=== PATIENT | female | born 1965 | race Caucasian/White ===

== ENCOUNTER → 2017-02-14 | Outpatient (CLI) | payer OTHER ==
[~2017-02-14] MED LIST: ALPR1TAB2 PO; ATEN50TA PO; BUPR150T8 PO; CETI10TA22 PO; CHOL10003 PO; DESV100T PO; DICY20TA3 PO; HYDR-2762 PO; LANS30CA PO; LEVO100T5 PO; LORA10TA68 PO; MAGN400C PO; METH-38 PO; MULT1TAB52 PO; NORE-2 PO; OXYC-323 PO; SENN-37 PO; TRAZ50TA15 PO
[2017-02-14 12:34] LABS: BASO % 0 % (0-3); EOS % 0 % (0-3); HEMATOCRIT 41.4 % (36.0-47.0); HEMOGLOBIN 13.7 g/dL (12.0-15.5); LYMPH # 1.4 x10^3/uL (1.0-4.8); LYMPH % 15 % (24-48); MEAN CORPUSCULAR HEMOGLOBIN 29 pg (25-35); MEAN CORPUSCULAR HGB CONC 33 g/dL (31-37); MEAN CORPUSCULAR VOLUME 89 fL (79-100); MONO % 5 % (0-9); NEUT % 80 % (31-73); PLATELET COUNT 295 x10^3/uL (140-400); RED BLOOD COUNT 4.66 x10^6/uL (3.50-5.40); WHITE BLOOD COUNT 9.3 x10^3/uL (4.0-11.0)
[2017-02-14 12:43] LABS: INR 0.9 (0.8-1.1)
[2017-02-14 12:50] LABS: ALBUMIN 3.1 g/dL (3.4-5.0); ALBUMIN/GLOBULIN RATIO 0.7 (1.0-1.7); CALCIUM 8.2 mg/dL (8.5-10.1); CREATININE 1.3 mg/dL (0.6-1.0); GFR 43.4; POTASSIUM 4.3 mmol/L (3.5-5.1); TOTAL BILIRUBIN 0.1 mg/dL (0.2-1.0); TOTAL PROTEIN 7.3 g/dL (6.4-8.2)
--- NOTE | 2017-02-14 12:51 | EKG ---
[facility] [address] [place] [address] Test Date: 2017-02-14 Test Time: 12:54:21 Pat Name: JESSICA ALANIZ Department: Room: Gender: F Physical Therapy Attendant: : 1965 Requested By: MANUEL DUKES Order Number: [id number] Reading MD: Gibson Hall Measurements Intervals [place] Rate: 81 P: 54 OK: 102 QRS: 54 QRSD: 78 T: 48 QT: 382 QTc: 449 Interpretive Statements SINUS RHYTHM Electronically Signed On 02-16-2017 13:06:42 CDT by Gisbon Hall
== END | disposition home or self-care (01) ==
LOC: SURGPAT 12:08
PROVIDERS: ATTEND Neurological Surgery
DX: M54.12 Radiculopathy, cervical region (principal)
CPT/HCPCS: 36415; 80053; 85027; 85610; 85730; 87641; 93005

== ENCOUNTER 2017-02-19 09:59 | Observation (INO) | payer OTHER ==
[~2017-02-19] VITALS: Ht 152.4 cm; Wt 81.6 kg
[2017-02-19] VITALS (9 sets, daily range): BP systolic 136–152; BP diastolic 75–97
[~2017-02-19 09:59] MED LIST changes: +BACITRACIN 50,000 UNIT in IV NORMAL SALINE 1000ML BAG 1,000 ML IRR ONE; +HYDROmorphone 2 MG/ML VIAL IV PRN; +IV RINGERS,LACTATED 1000ML 1,000 ML IV SCH; +LIDOCAINE 1% 1 ML SYRINGE. ID PRN; -METH-38 PO; +MORPHINE SULFATE 2 MG/ML DISP.SYRIN. IV PRN; +ONDANSETRON PF 4 MG/2 ML VIAL. IV PRN; -OXYC-323 PO; +PROCHLORPERAZINE 10 MG/2 ML VIAL. IV PRN; -SENN-37 PO; +VANCOMYCIN 1GM IVPB FOR OMNI 250 ML IV PRN; +fentaNYL PF VIAL 100 MCG/2 ML VIAL IV PRN
[2017-02-19] MEDS ORDERED: fentaNYL PF VIAL 100 MCG/2 ML VIAL ONE (10:36)
[2017-02-19] MEDS ORDERED: MIDAZOLAM HCL/PF 2 MG/2 ML VIAL. ONE (10:36)
[2017-02-19] MEDS ORDERED: ROCURONIUM 50 MG/5 ML VIAL. ONE (10:36)
[2017-02-19] MEDS ORDERED: DESFLURANE 61 TO 120 MINUTES IH ONE (10:36)
[2017-02-19] MEDS ORDERED: DEXAMETHASONE SOD PHOS 20 MG/5 ML VIAL. ONE (10:37)
[2017-02-19] MEDS ORDERED: PHENYLEPHRINE 10 MG/ML VIAL. ONE (10:37)
[2017-02-19] MEDS ORDERED: PROPOFOL 20 ML IV ONE (10:37)
[2017-02-19] MEDS ORDERED: ONDANSETRON PF 4 MG/2 ML VIAL. ONE (10:37)
[2017-02-19] MEDS ORDERED: 0.9 % SODIUM CHLORIDE 50 ML VIAL. IJ ONE (10:37)
[2017-02-19] MEDS ORDERED: PROPOFOL 50 ML IV ONE (10:37)
[2017-02-19] MEDS ORDERED: BUPIVACAINE-EPI 0.25%-1:200000 MPF 30 ML VIAL. ONE (10:37)
[2017-02-19] MEDS ORDERED: THROMBIN TOPICAL 20,000 UNIT SPRAY.SYRN KIT TP ONE (10:38)
[2017-02-19] MEDS ORDERED: REMIFENTANIL 2 MG VIAL. IV ONE (10:38)
[2017-02-19] MEDS ORDERED: GELATIN SPONGE SIZE 100. ONE (10:38)
[2017-02-19] MEDS ORDERED: NEOSTIGMINE METHYLSULFATE 5 MG/5 ML SYRINGE. ONE (12:00)
[2017-02-19] MEDS ORDERED: GLYCOPYRROLATE 1 MG/5 ML VIAL. ONE (12:00)
--- NOTE | 2017-02-19 15:41 | PDOC ---
BRIEF OPERATIVE NOTE Date: Feb 19, 2017 Pre-Op Diagnosis cervical radiculopathy, cervical stenosis, weakness Post-Op Diagnosis same Procedure Performed ACDF 6-7 Surgeon Letitia Airborne Operations Manager none Blood Loss 25mL Specimens Obtained disk and decompression Findings -adjacent level construct intact at C5-6 -prominent stenosis C6-7 from disk/osteophyte -neuromonitoring potentials improved upon completion of the procedure compared to baseline Complications none apparent MANUEL DUKES MD Feb 19, 2017 15:41
[2017-02-19] MEDS ORDERED: MAGNESIUM HYDROXIDE 2,400 MG/30 ML ORAL.SUSP. PO PRN (15:45)
[2017-02-19] MEDS ORDERED: ACETAMINOPHEN 325 MG TABLET. PO PRN (15:45)
[2017-02-19] MEDS ORDERED: CALCIUM CARBONATE 500 MG TAB.CHEW PO PRN (15:45)
[2017-02-19] MEDS ORDERED: ONDANSETRON PF 4 MG/2 ML VIAL. IV PRN (15:45)
[2017-02-19] MEDS ORDERED: MAG HYDROX/ALUMINUM HYD/SIMETH 30 ML ORAL.SUSP PO PRN (15:45)
[2017-02-19] MEDS ORDERED: 0.9 % SODIUM CHLORIDE 10 ML DISP.SYRIN. IV PRN (15:45)
[2017-02-19] MEDS ORDERED: fentaNYL PF VIAL 100 MCG/2 ML VIAL IV PRN ×2 (15:45)
[2017-02-19] MEDS ORDERED: NALOXONE 0.4 MG/ML VIAL. IV PRN (15:45)
[2017-02-19] MEDS ORDERED: diphenhydrAMINE HCL 25 MG CAPSULE PO PRN (15:45)
[2017-02-19] MEDS ORDERED: diphenhydrAMINE 50 MG/ML VIAL IV PRN (15:45)
[2017-02-19] MEDS ORDERED: ZOLPIDEM 5 MG TABLET. PO PRN (15:45)
[2017-02-19] MEDS: fentaNYL PF VIAL 100 MCG/2 ML VIAL IV PRN ×2 (15:58→16:15)
[2017-02-19] MEDS: METHOCARBAMOL 750 MG TABLET PO SCH ×2 (16:00→20:44)
[2017-02-19] MEDS: FERROUS SULFATE 325 MG TABLET. PO SCH (17:00)
[2017-02-19] MEDS: CALCIUM CARB/VIT D3 500/200 TABLET. PO SCH (17:00)
[2017-02-19] MEDS: SENNOSIDES/DOCUSATE 8.6/50MG TABLET. PO SCH (20:44)
[2017-02-19] MEDS: oxyCODONE/APAP 5/325 1 TAB TABLET PO PRN ×2 (20:44→23:10)
[2017-02-19] MEDS: DOCUSATE SODIUM 100 MG CAPSULE. PO SCH (20:44)
[2017-02-20 02:45] VITALS: BP 150/94
[2017-02-20] MEDS: oxyCODONE/APAP 5/325 1 TAB TABLET PO PRN ×2 (05:22→09:01)
[2017-02-20 06:31] VITALS: BP 137/95
[2017-02-20] MEDS: CALCIUM CARB/VIT D3 500/200 TABLET. PO SCH (08:00)
[2017-02-20] MEDS: FERROUS SULFATE 325 MG TABLET. PO SCH (08:00)
--- NOTE | 2017-02-20 08:05 | PDOC ---
SUBJECTIVE Subjective Some incisional pain. Reports resolution of arm pain and improvement of strength. Reports soreness with po but denies significant problem with swallow. OBJECTIVE Vital Signs Vital Signs Date Time Temp Pulse Resp B/P (MAP) Pulse Ox O2 Delivery O2 Flow Rate FiO2 02/20/17 06:31 98.2 107 18 137/95 (109) 96 Room Air 98.2 02/20/17 06:25 16 Room Air 02/20/17 05:22 18 92 Room Air 02/20/17 02:45 98.5 101 18 150/94 (112) 92 Room Air 98.5 02/20/17 00:06 16 Room Air 02/19/17 23:10 18 91 Room Air 02/19/17 23:00 98.9 109 18 136/75 (95) 92 Room Air 98.9 02/19/17 21:00 98.7 104 17 143/85 (104) 91 Room Air 98.7 02/19/17 20:44 18 91 Room Air 02/19/17 20:10 Nasal Cannula 2.0 02/19/17 20:00 97.5 99 18 152/97 (115) 91 Room Air 97.5 02/19/17 19:00 98.4 90 18 150/94 (112) 95 Nasal Cannula 2.0 98.4 02/19/17 18:33 98.3 91 18 150/92 (111) 95 Nasal Cannula 2.0 98.3 02/19/17 18:00 91 16 149/93 (111) 96 Nasal Cannula 2.0 02/19/17 17:50 Nasal Cannula 2.0 02/19/17 17:30 101 18 146/93 (110) 91 Room Air 02/19/17 17:19 Room Air 02/19/17 17:15 101 20 146/93 (110) 93 Nasal Cannula 2.0 02/19/17 17:00 98.5 106 18 151/93 (112) 94 Nasal Cannula 2.0 98.5 02/19/17 16:50 Nasal Cannula 2.0 02/19/17 16:40 97.1 98 12 151/75 94 Nasal Cannula 2 97.1 02/19/17 16:25 96 14 158/74 95 Nasal Cannula 2 02/19/17 16:20 Nasal Cannula 2 02/19/17 16:15 18 99 Nasal Cannula 2.0 02/19/17 16:10 98 18 155/79 96 Nasal Cannula 2 02/19/17 16:00 20 99 Simple Mask 10.0 02/19/17 15:58 20 98 Simple Mask 10.0 02/19/17 15:55 100 18 155/76 100 Simple Mask 10 02/19/17 15:48 Mask 10 02/19/17 15:40 100 18 159/76 99 Simple Mask 10 02/19/17 10:27 98.5 82 16 125/83 94 Room Air 98.5 I & O Intake and Output 02/20/17 06:59 Intake Total 2530 ml Output Total 1753 ml Balance 777 ml Intake Oral 580 ml IV Total 1950 ml Output Urine Total 1728 ml Estimated Blood Loss 25 ml # Voids 3 PHYSICAL EXAM Physical Exam AAOx4, NAD, SAMS with improved LUE sports attorney and now 5/5 KIMBERLY, sensation intact LT, dressing with scant ss stain, dry, intact, flat ASSESSMENT/PLAN Assessment/Plan POD 1 C6-7 ACDF (extension of prior C5-6 fusion) -appears to be recovering well thus far -therapies -d/c today if continues to do well Problems: MANUEL DUKES MD Feb 20, 2017 08:05
[2017-02-20] MEDS ORDERED: OXYC-323 PO (08:29)
[2017-02-20] MEDS ORDERED: SENN-37 PO (08:30)
[2017-02-20] MEDS ORDERED: METH-38 PO (08:30)
[2017-02-20] MEDS ORDERED: MULTIVITAMIN with MINERAL TABLET. PO SCH (09:00)
[2017-02-20] MEDS: METHOCARBAMOL 750 MG TABLET PO SCH (09:01)
[2017-02-20] MEDS: DOCUSATE SODIUM 100 MG CAPSULE. PO SCH (09:02)
[2017-02-20] MEDS: SENNOSIDES/DOCUSATE 8.6/50MG TABLET. PO SCH (09:02)
[2017-02-20 09:39] VITALS: BP 129/80
--- NOTE | 2017-02-21 12:39 | PATHOLOGY ---
PATHOLOGY REPORT * * * * * * * * FINAL DIAGNOSIS: Fibrocartilaginous tissue and bone, "cervical disc": - Fibrocartilaginous tissue and bone consistent with disc material. ([facility]; 02/21/2017) REPORT ELECTRONICALLY SIGNED BY: Nestor Mazariegos M.D. DATE/TIME: 02/21/2017 12:38 * * * * * * * * GROSS PATHOLOGY: Received in formalin labeled "Jessica Wilson, cervical disc" are multiple segments of [place], rubbery, and gritty tissue admixed with bone. The specimen measures 2.8 x 2.5 x 0.8 cm in aggregate dimensions. The tissue is submitted entirely in cassette A1, following decalcification. ([facility]; 02/20/17) INITIAL CPT CODE(S): A; 23216, 99439 Professional services performed [place] [address] Technical services performed by [facility] at [address] [place] [address], [facility] [address], [place] [address]. SPECIMEN(S) RECEIVED: A.Cervical disc CLINICAL HISTORY: None Provided PATIENT: JESSICA WILSON /AGE: 9 1965 (Age: 51) PATIENT #: [id number] ALT CASE #: SPECIMEN COLLECTION DATE: 02/19/2017 SPECIMEN RECEIVED DATE: 02/20/2017 [facility] - [address] [place] [address] - PHONE: [phone] * * * END OF REPORT * * *
--- NOTE | 2017-03-07 16:32 | OP ---
DATE OF SURGERY: 02/19/2017 SURGEON: Dr. Manuel Dukes. HAND PACKER: None. PREOPERATIVE DIAGNOSES: Cervical stenosis, cervical radiculopathy, and weakness. PROCEDURE: Anterior cervical diskectomy and fusion of cervical 6-7 with anterior instrumentation and structural allograft; this is an extension of a prior cervical 5-6 fusion. ANESTHESIA: General. COMPLICATIONS: None intraprocedurally. INDICATIONS FOR THE PROCEDURE: The patient is a 51-year-old female who developed cervical radiculopathy and weakness localized to a prominent stenosis disk osteophyte complex at C6-C7. Please refer to the patient chart for additional details. DESCRIPTION OF PROCEDURE: After informed consent was obtained, the patient was brought into the operating room and was placed under general anesthesia. She was placed in the supine position. A shoulder bump was placed under the shoulders and the head was placed in very slight extension. Neuromonitoring was instituted and baseline potentials were obtained. Fluoroscopy was utilized to localize an appropriate incision location. An incision just below the prior anterior cervical incision was planned. The anterior neck was then prepped and draped in the usual sterile fashion. The incision was opened with a scalpel and blunt dissection techniques were utilized to dissect the underlying soft tissues. Some scar tissue was encountered, but this was noted to be slightly cephalad to the present location. The platysma was sharply divided in the plane of the incision and a plane was bluntly developed between the trachea and the esophagus medially and the carotid sheath laterally to approach the anterior cervical spine. There was some scar tissue in the region of the prevertebral fascia. This was gently dissected in a blunt fashion. The prior of the cervical 5-6 fusion was identified and palpated and gentle dissection techniques were utilized to expose the disk space of cervical 6-7 just caudal to the 5-6 fusion construct. The 5-6 fusion construct was inspected and noted to be solid. The cervical 6-7 level was verified with fluoroscopy prior to the initiation of diskectomy. Distraction pins were instituted in the inferior aspect of cervical 6 just below the prior fusion construct and the superior aspect of cervical 7. Distraction was instituted utilizing the pins and an annulotomy was performed at cervical 6-7 with a scalpel. Diskectomy was performed with a curette as well as a pituitary rongeur to approach the posterior longitudinal ligament. This was taken down with a pituitary rongeur and the posterior osteophyte was taken down with pituitary rongeur as well. The thecal sac was noted to be very well decompressed. Upon completion of these things, this was verified with direct visualization as well as gentle palpation with a nerve hook. A structural allograft bone was instituted into the interbody spaces after the trials were instituted to ascertain the appropriate graft size. This was instituted into the disk space. Once this was complete, the distraction was removed and the distraction pins were removed as well. There was sufficient room adjacent to the prior fusion construct to institute an anterior cervical plate with good purchase at the inferior aspect of C6 and C7. Amendia hardware was utilized for this. A single level cervical plate was instituted over the C6-C7 disk space and secured with screws into the body of cervical 6 and cervical 7 with good purchase. These were locked according to the net making supervisor's specification. Fluoroscopy was utilized to visualize the construct prior to the final closure. Once this was complete, the wound was generously irrigated with antibiotic irrigation. Pristine hemostasis was achieved with FloSeal, cottonoids and some minimal use of bipolar electrocautery. Neuromonitoring potentials were noted to be improved upon the completion of this procedure compared to baseline including somatosensory and motor potentials. Once these things were complete, the platysma was reapproximated with 0 Vicryl suture in an interrupted fashion. Subcutaneous tissues were reapproximated with 0 Vicryl suture in an interrupted inverted fashion and the skin was made with 4-0 Vicryl in a running subcuticular fashion. Mastisol and Steri-Strips were applied and the wound was dressed with Telfa and Tegaderm. At the end of the procedure, all needle and sponge counts were correct x 2. The patient was extubated in the operating room and taken to recovery in stable condition. There were no intraprocedural complications apparent. MANUEL DUKES MD DR: AKIKO/reese JOB#: [id number] / [id number]
== END 2017-02-20 10:15 | disposition home or self-care (01) ==
LOC: INTOOBSV 09:59 → OPSVCIP 09:59 → 4 SOUTHEST 16:50
PROVIDERS: ADMIT Neurological Surgery; ATTEND Neurological Surgery
DX: M48.02 Spinal stenosis, cervical region (principal); M54.12 Radiculopathy, cervical region; M25.78 Osteophyte, vertebrae
CPT/HCPCS: 20931; 22551; 22845; 76000; 88304; 88311; 96374; 97161; 97165; A6539; C1713; G0378; G0379; G8978; G8979; G8980; G8987; G8988; G8989; J1100; J2250; J2270; J2704; J2710; J3010; J3370; J3490; J7030; J7120; J2405

== ENCOUNTER → 2017-07-20 | Outpatient (CLI) | payer OTHER ==
[~2017-07-20] MED LIST changes: +ATOR20TA58 PO; -BACITRACIN 50,000 UNIT in IV NORMAL SALINE 1000ML BAG 1,000 ML IRR ONE; -HYDROmorphone 2 MG/ML VIAL IV PRN; -IV RINGERS,LACTATED 1000ML 1,000 ML IV SCH; -LIDOCAINE 1% 1 ML SYRINGE. ID PRN; +METH-38 PO; +METO-239 PO; -MORPHINE SULFATE 2 MG/ML DISP.SYRIN. IV PRN; -ONDANSETRON PF 4 MG/2 ML VIAL. IV PRN; +OXYC-323 PO; -PROCHLORPERAZINE 10 MG/2 ML VIAL. IV PRN; +SENN-37 PO; +SENN1TAB99 PO; -VANCOMYCIN 1GM IVPB FOR OMNI 250 ML IV PRN; -fentaNYL PF VIAL 100 MCG/2 ML VIAL IV PRN
[2017-07-20 13:57] LABS: BASO % 0 % (0-3); EOS % 0 % (0-3); HEMATOCRIT 41.8 % (36.0-47.0); HEMOGLOBIN 13.7 g/dL (12.0-15.5); LYMPH # 1.7 x10^3/uL (1.0-4.8); LYMPH % 21 % (24-48); MEAN CORPUSCULAR HEMOGLOBIN 29 pg (25-35); MEAN CORPUSCULAR HGB CONC 33 g/dL (31-37); MEAN CORPUSCULAR VOLUME 88 fL (79-100); MONO % 7 % (0-9); NEUT % 72 % (31-73); PLATELET COUNT 281 x10^3/uL (140-400); RED BLOOD COUNT 4.76 x10^6/uL (3.50-5.40); WHITE BLOOD COUNT 8.1 x10^3/uL (4.0-11.0)
[2017-07-20 14:12] LABS: PROTHROMBIN TIME PATIENT 12.1 SEC (11.7-14.0)
[2017-07-20 14:24] LABS: ALBUMIN 3.3 g/dL (3.4-5.0); ALBUMIN/GLOBULIN RATIO 0.8 (1.0-1.7); CREATININE 1.5 mg/dL (0.6-1.0); GFR 36.6; POTASSIUM 4.2 mmol/L (3.5-5.1); TOTAL BILIRUBIN 0.2 mg/dL (0.2-1.0); TOTAL PROTEIN 7.2 g/dL (6.4-8.2)
== END | disposition home or self-care (01) ==
LOC: SURGPAT 13:00
PROVIDERS: ATTEND Neurological Surgery
DX: Z01.812 Encounter for preprocedural laboratory examination (principal); M47.9 Spondylosis, unspecified
CPT/HCPCS: 36415; 80053; 85025; 85610; 85730; 87641

== ENCOUNTER 2017-07-24 07:04 | Day surgery (SDC) | payer OTHER ==
[~2017-07-24] VITALS: Ht 152.4 cm; Wt 89.4 kg
[~2017-07-24 07:04] MED LIST changes: +BACITRACIN 50,000 UNIT in IV NORMAL SALINE 1000ML BAG 1,000 ML IRR ONE; +HYDROmorphone 2 MG/ML VIAL IV PRN; +IV RINGERS,LACTATED 1000ML 1,000 ML IV SCH; +LIDOCAINE 1% PF 2 ML VIAL. ID PRN; +ONDANSETRON PF 4 MG/2 ML VIAL. IV PRN; +PROCHLORPERAZINE 10 MG/2 ML VIAL. IV PRN; -SENN1TAB99 PO; +VANCOMYCIN 1GM IVPB FOR OMNI 250 ML IV PRN; +fentaNYL PF VIAL 100 MCG/2 ML VIAL IV PRN
[2017-07-24] MEDS ORDERED: BUPIVAC MPF-EPI 0.5%-1:200000 30 ML VIAL. ONE (07:36)
[2017-07-24] MEDS ORDERED: GELATIN SPONGE SIZE 100. ONE (07:36)
[2017-07-24] MEDS ORDERED: THROMBIN TOPICAL 20,000 UNIT SPRAY.SYRN KIT TP ONE (07:36)
[2017-07-24] MEDS ORDERED: MIDAZOLAM HCL/PF 2 MG/2 ML VIAL. ONE (08:29)
[2017-07-24] MEDS ORDERED: fentaNYL PF VIAL 250 MCG/5 ML VIAL ONE (08:29)
[2017-07-24] MEDS ORDERED: REMIFENTANIL 2 MG VIAL. IV ONE (08:30)
[2017-07-24] MEDS ORDERED: ROCURONIUM 50 MG/5 ML VIAL. ONE (08:30)
[2017-07-24] MEDS ORDERED: PROPOFOL 20 ML IV ONE (09:35)
[2017-07-24] MEDS ORDERED: LIDOCAINE 2% PF Vial for OR 5 ML VIAL. ONE (09:35)
[2017-07-24] MEDS ORDERED: ONDANSETRON PF 4 MG/2 ML VIAL. ONE (09:35)
[2017-07-24] MEDS ORDERED: DEXAMETHASONE SOD PHOS 20 MG/5 ML VIAL. ONE (09:35)
[2017-07-24] MEDS ORDERED: DESFLURANE > 120 MINUTES IH ONE (09:35)
[2017-07-24] MEDS ORDERED: PROPOFOL 50 ML IV ONE (09:35)
[2017-07-24] MEDS ORDERED: MINERAL OIL/PETROLATUM,WHITE OPHTH OINT 3.5GM TUBE. ONE (09:38)
[2017-07-24] MEDS ORDERED: NEOSTIGMINE METHYLSULFATE 5 MG/5 ML SYRINGE. ONE (10:23)
[2017-07-24] MEDS ORDERED: GLYCOPYRROLATE 1 MG/5 ML VIAL. ONE (10:23)
[2017-07-24] MEDS ORDERED: fentaNYL PF VIAL 100 MCG/2 ML VIAL ONE ×2 (10:23→11:26)
--- NOTE | 2017-07-24 10:27 | PDOC ---
BRIEF OPERATIVE NOTE Date: Jul 24, 2017 Pre-Op Diagnosis cervical radiculopathy, cervical spondylosis, cervical foraminal stenosis Post-Op Diagnosis same Procedure Performed right C6-7 hemilaminotomy with foraminotomy Surgeon Letitia Manager Area none Anesthesia Type: General Blood Loss 25mL Specimens Obtained decompression Findings foraminal stenosis right C6-7, neuromonitoring potentials improved at completion of procedure/decompression Complications none apparent MANUEL DUKES MD Jul 24, 2017 10:27
--- NOTE | 2017-07-24 10:30 | DISCH ---
DISCHARGE INSTRUCTIONS Condition on Discharge Condition on Discharge: Stable Activity After Discharge Activity Instructions for Disc: Avoid exertion, Progressive ambulation, Other, see below (avoid strenuous activity; no lifting more than 10lbs) Lifting Instructions after Dis: Do not lift >10 pounds Wound Incision Care Wound/Incision Care: Ice to area for comfort, Keep wound/cast CDI, Other, see below (may remove dressing day 3 after surgery; keep incision clean and dry; do not soak, scrub, or submerge incision) Contacting the after DC Call your doctor for: Concerns you may have Follow-Up Follow up with: follow-up with Dr. Dukes in two weeks [phone] MANUEL DUKES MD Jul 24, 2017 10:30
[2017-07-24] MEDS ORDERED: MORPHINE SULFATE 2 MG/ML DISP.SYRIN. ONE (10:50)
[2017-07-24] MEDS: MORPHINE SULFATE 2 MG/ML DISP.SYRIN. IV PRN ×2 (10:52→11:03)
[2017-07-24] MEDS ORDERED: SENN1TAB99 PO (11:08)
[2017-07-24] MEDS ORDERED: OXYC-323 PO (11:08)
[2017-07-24] MEDS ORDERED: METH-38 PO (11:09)
[2017-07-24] MEDS: fentaNYL PF VIAL 100 MCG/2 ML VIAL IV PRN ×4 (11:15→11:41)
--- NOTE | 2017-07-24 11:35 | OP ---
DATE OF SURGERY: 07/24/2017 SURGEON: Rolan Dukes MD STRAIGHTENER AND ALIGNER: None. PREOPERATIVE DIAGNOSES: Cervical radiculopathy and weakness with cervical foraminal stenosis and cervical spondylosis. POSTOPERATIVE DIAGNOSES: Cervical radiculopathy and weakness with cervical foraminal stenosis and cervical spondylosis. PROCEDURE: Right cervical 6-7 hemilaminotomy with foraminotomy. ANESTHESIA: General. COMPLICATIONS: None intraprocedurally. INDICATIONS FOR THE PROCEDURE: The patient is a 52-year-old female who has had prior anterior cervical surgery with diskectomy and decompression. She has developed recurrent right upper extremity pain with some tricep difficulty. Imaging revealed some foraminal stenosis at C6-C7 and she also had an EMG showing a right C7 radiculopathy with normal potentials at all other locations. She has been refractory to nonsurgical treatments. Please refer to the patient chart for additional details. DESCRIPTION OF PROCEDURE: After informed consent was obtained, the patient was brought into the operating room. She was placed under general anesthesia. Neuro monitoring potentials were instituted and baseline somatosensory motor potentials were obtained. The patient was placed in a [place] hogshead inspector to a pressure of 70 pounds and turned into the prone position. All pressure points were checked and padded appropriately. The [place] was affixed to the bed with head in a neutral position. Both posterior neck was prepped and draped in the usual sterile fashion. Fluoroscopy was utilized to localize an appropriate incision location and a vertical incision centered over the region of cervical 6-7 was made with a 10 blade scalpel. Monopolar electrocautery was utilized to dissect the avascular midline of the spinous processes of cervical C6-C7 and also to the spinous process of cervical 5. Dissection was carried out rightward across the lamina at cervical 6-7 and partially at cervical 5-6. Fluoroscopy was utilized to localize the appropriate level prior to decompression because cervical 6-7 could not be readily visualized on the fluoroscopy. Marker was placed at cervical 5-6, which was very readily visualized and one level caudal to this was identified for decompression. A hemilaminotomy was performed at cervical 6-7 with a pneumatic drill and a Kerrison rongeur and this was extended laterally to perform the foraminotomy at cervical 6-7 on the right. Adjacent nerve root was identified and its trajectory was followed up with foraminotomy that was completed with the Kerrison rongeur. Upon completion of decompression, motor and somatosensory potentials were markedly improved. Pristine hemostasis was achieved with FloSeal, cottonoids and some use of bipolar electrocautery. The wound was generously irrigated with antibiotic irrigation and the wound was reapproximated with 0 Vicryl to reapproximate the muscle and fascia. The subcutaneous tissues were reapproximated with 2-0 Vicryl in interrupted inverted fashion. Skin was reapproximated with fanta. The wound was dressed with Xeroform, Telfa and Tegaderm. The drapes were taken down and the patient was disconnected from bed and the [place] and turned supine onto an adjacent bed. The [place] hogshead inspector was removed and the pin sites were inspected for hemorrhage. No hemorrhage was observed. At the end of procedure, all needle and sponge counts were correct x 2. Again neuro monitoring potentials were markedly improved compared to baseline upon completion of procedure. There were no intraprocedural complications apparent. The patient was extubated and taken to recovery in stable condition. ROLAN DUKES MD DR: AKIKO/reese JOB#: [id number] / [id number]
[2017-07-24] MEDS ORDERED: oxyCODONE/APAP 5/325 1 TAB TABLET PO PRN (11:45)
[2017-07-24 13:00] VITALS: BP 123/63
--- NOTE | 2017-07-25 16:17 | PATHOLOGY ---
PATHOLOGY REPORT * * * * * * * * FINAL DIAGNOSIS: Segments of cartilaginous tissue and bone, cervical decompression: - Degenerative changes of cartilaginous tissue. COMMENT: There is no evidence of an acute inflammatory process or malignancy. ([facility]:; 07/25/2017) REPORT ELECTRONICALLY SIGNED BY: Nate Villa M.D. DATE/TIME: 07/25/2017 16:17 * * * * * * * * GROSS PATHOLOGY: Received in formalin labeled "Jessica Wilson, cervical decompression," are multiple small segments of [place] rubbery and gritty tissue measuring 1.8 x 0.9 x 0.3 cm in aggregate dimensions, containing small fragments of possible bone. The tissue is filtered and submitted entirely in cassette A1, following decalcification. ([facility]; 07/24/2017) INITIAL CPT CODE(S): A; 28956, 11093 Professional services performed [place] [address] Technical services performed by [facility] at [address] [place] [address], [facility] [address], [place] [address]. SPECIMEN(S) RECEIVED: A.Cervical decompression CLINICAL HISTORY: Radicular pain, cervical spondylosis, weakness PATIENT: JESSICA WILSON /AGE: 9 1965 (Age: 52) PATIENT #: [id number] ALT CASE #: SPECIMEN COLLECTION DATE: 07/24/2017 SPECIMEN RECEIVED DATE: 07/24/2017 [facility] - [address] [place] [address] - PHONE: [phone] * * * END OF REPORT * * *
== END 2017-07-24 13:34 | disposition home or self-care (01) ==
LOC: SURG 07:04
PROVIDERS: ATTEND Neurological Surgery
PROC: 01N10ZZ Release Cervical Nerve, Open Approach (ICD-10-PCS; principal; 2017-07-24 08:30)
DX: M47.22 Other spondylosis with radiculopathy, cervical region (principal); M48.02 Spinal stenosis, cervical region
CPT/HCPCS: 63045; 76000; 88304; 88311; 97161; C1713; J1100; J2250; J2270; J2405; J2704; J2710; J3010; J3370; J3490; J7030; J2001

== ENCOUNTER → 2017-09-13 | Outpatient (CLI) | payer OTHER | END | disposition home or self-care (01) | LOC: RAD 10:41 | DX: Z98.890 Other specified postprocedural states (principal); M47.892 Other spondylosis, cervical region; Z98.1 Arthrodesis status | CPT/HCPCS: 72040 ==